=== PATIENT | female | born 1970 | race Caucasian/White ===

== ENCOUNTER 2017-08-09 13:03 | Emergency (ER) | payer SELFPAY ==
[~2017-08-09] VITALS: Ht 165.1 cm; Wt 99.8 kg
--- OUTSIDE RECORDS SUMMARY | 2017-08-09 13:11 | XMS REPORT ---
Author Author JULIAN HUGHES [facility] [place] eClinicalWorks Address Unknown Phone Unavailable Care Team Providers Care Psychologist Industrial Organizational Name Role Phone JULIAN HUGHES CP Unavailable Allergies No Known Allergies Problems Problem Type Condition Code Onset Dates Condition Status Problem Unspecified breast screening V76.10 Active Problem Acute pharyngitis 462 Active Problem Other psoriasis 696.1 Active Assessment Unspecified abdominal pain R10.9 Active Problem Pain in joint, lower leg 719.46 Active Problem STATE HEP A (ADULT) DX V05.3 Active Medications No Known Medications Procedures Procedure Coding System Code Date COMPLETE CBC W/AUTO DIFF WBC CPT-4 91698 Apr 12, 2015 ASSAY OF LIPASE CPT-4 39489 Apr 12, 2015 COMPREHEN METABOLIC PANEL CPT-4 62934 Apr 12, 2015 ASSAY THYROID STIM HORMONE CPT-4 62273 Apr 12, 2015 ASSAY OF AMYLASE CPT-4 82534 Apr 12, 2015 VENIPUNCT, ROUTINE* CPT-4 66460 Apr 12, 2015 ASSAY OF FREE THYROXINE CPT-4 28661 Apr 12, 2015 Results Name Result Date Reference Range Unit Abnormality Flag ROUTINE VENIPUNCTURE Summary Purpose eClinicalWorks Submission
--- OUTSIDE RECORDS SUMMARY | 2017-08-09 13:11 | XMS REPORT ---
Author Author ZHAO DOLAN [facility] Address [address] [place] [address] Care Team Providers Care Supervisor Belt And Link Assembly Name Role Phone ZHAO DOLAN Unavailable PROBLEMS Type Condition ICD9-CM Code [id number] Code Onset Dates Condition Status SNOMED Code Problem Mild persistent asthma without complication J45.30 Active 223626621 Problem Acute pharyngitis 462 Active 974142335 Problem STATE HEP A (ADULT) DX V05.3 Active 309198957 Problem Unspecified breast screening V76.10 Active 312300465 Problem Other psoriasis 696.1 Active 5935321 Problem Pain in joint, lower leg 719.46 Active 260696528 ALLERGIES Substance Reaction Event Type Date Status Penicillin V Potassium anaphylaxis Drug Allergy May, Active Erythromycin swelling Drug Allergy May, Active SOCIAL HISTORY No smoking Hx information available PLAN OF CARE Activity Details Follow Up prn Reason:worsening VITAL SIGNS Height 65.5 in 2016-05-29 Weight 208.4 lbs 2016-05-29 Temperature 98.0 degrees Fahrenheit 2016-05-29 Heart Rate 68 bpm 2016-05-29 Respiratory Rate 16 2016-05-29 BMI 34.15 kg/m2 2016-05-29 Blood pressure systolic 110 mmHg 2016-05-29 Blood pressure diastolic 60 mmHg 2016-05-29 MEDICATIONS No Known Medications RESULTS Name Result Date Reference Range INFLUENZA A & B (IN HOUSE) 2016-05-29 INFLUENZA A negative INFLUENZA B negative Control positive Lot # [id number] Exp date 12/13/17 STREP A (IN HOUSE) 2016-05-29 STREP A negative Control positive Lot # [id number] Exp date 01/03 PROCEDURES Procedure Date Ordered Related Diagnosis Body Site STREP A ASSAY W/OPTIC May 29, 2016 INFLUENZA ASSAY W/OPTIC May 29, 2016 Office Visit, Est Pt., Level 3 May 29, 2016 IMMUNIZATIONS No Known Immunizations
--- OUTSIDE RECORDS SUMMARY | 2017-08-09 13:11 | XMS REPORT ---
Author Author ZHAO DOLAN [facility] Address [address] [place] [address] Care Team Providers Care Clinching Machine Operator Name Role Phone DOLANZHAO MARQUEZ Unavailable PROBLEMS Type Condition ICD9-CM Code [id number] Code Onset Dates Condition Status SNOMED Code Problem Unspecified breast screening V76.10 Active 222664105 Problem Acute vasomotor rhinitis J30.0 Active 5770440 Problem Mild persistent asthma without complication J45.30 Active 831799067 Problem Pain in joint, lower leg 719.46 Active 199730154 Problem STATE HEP A (ADULT) DX V05.3 Active 530892612 Problem Acute pharyngitis 462 Active 265163614 Problem Other psoriasis 696.1 Active 1690037 ALLERGIES Substance Reaction Event Type Date Status Penicillin V Potassium anaphylaxis Drug Allergy Oct, Active Erythromycin swelling Drug Allergy Oct, Active ENCOUNTERS Encounter Location Date Diagnosis [place] [id number] [place] [id number] Jun, Influenza J11.1 [facility] [id number], [place] [address] Jun, [address] [place] [address] [id number] Apr, Body aches R52 ; Acute vasomotor rhinitis J30.0 ; Fever, unspecified fever cause R50.9 and Viral illness B34.[address] [place] [address] [id number] Mar, Sore throat J02.[address] [place] [address] [id number] Oct, Poison kiya L23.7 and Itching L29.[address] [place] [address] [id number] Oct, Poison kiya dermatitis L23.7 [place] [address] [id number] [place] [address] [id number] September, Poison kiya dermatitis L23.[address] [id number] May, Sore throat J02.9 and Viral syndrome B34.[address] [id number] May, Visit for TB skin test Z11.[address] [id number] Mar, Other viral warts B07.8 and Weight loss R63.[address] [id number] Aug, Paresthesia of skin R20.2 and Pain of left arm M79.[address] [id number] Jul, Mild persistent asthma without complication J45.30 and Viral syndrome B34.9 [place] [id number] [place] [address] [id number] Mar, Unspecified abdominal pain R10.[address] [id number] Mar, Unspecified abdominal pain R10.9 and Nausea R11.[address] [id number] Jan, Insect bite 919.4 [place] [id number] [place] [address] [id number] Oct, Cystocele 618.01 ; Painful intercourse 625.0 and Vaginal discharge 623.5 [facility] [address] [place] [id number] [place] [phone] Aug, [facility] [address] [id number] Aug, [place] [id number] [place] [address] [id number] September, [facility] [id number] [address] September, [facility] [id number] [id number] Jul, [facility] [address] [address] Jul, [facility] [id number] [place] [address] [id number] Jul, [facility] [address] [address] Aug, [facility] [id number] [place] [address] [id number] Jul, [facility] [id number] [place] [address] [id number] Jun, [facility] [id number] [place] [address] [phone] Jun, [facility] [id number] [place] [address] [id number] Jun, [facility] [id number] [place] [address] [id number] Jun, [facility] [id number] [place] [address] [id number] Jun, [facility] [id number] [phone] May, IMMUNIZATIONS Vaccine Route Administration Date Status BETAMETHASONE 6 MG/ML (PER 3 MG) IM Intramuscular October 21, 2016 Administered KENALOG 40 MG/ML (PER 10 MG) IM Intramuscular October 21, 2016 Administered SOCIAL HISTORY Never Assessed REASON FOR VISIT Poison kiya did not clear with solumedrol inj 10/04, still has extreme itching-- RADHA Toribio PLAN OF CARE Activity Details Follow Up prn Reason: VITAL SIGNS Height 65.5 in 2016-10-21 Weight 210.6 lbs 2016-10-21 Heart Rate 64 bpm 2016-10-21 Respiratory Rate 12 2016-10-21 BMI 34.51 kg/m2 2016-10-21 Blood pressure systolic 110 mmHg 2016-10-21 Blood pressure diastolic 80 mmHg 2016-10-21 MEDICATIONS Medication Instructions Dosage Frequency Start Date End Date Duration Status Flonase 50 MCG/DOSE Nasally Once a day 1 spray in each nostril 24h Active PredniSONE 10 MG Orally Once a day 4 tablet with food or milk x 4 d then 3 tab x 4 d then 2 tab x 4 d then 1 tab x 4 d 24h Oct, Active RESULTS No Results PROCEDURES Procedure Date Ordered Result Body Site KENALOG 40 MG/ML (PER 10 MG) October 21, 2016 BETAMETHASONE 6 MG/ML (PER 3 MG) October 21, 2016 THER/PROPH/DIAG INJ, SC/IM October 21, 2016 INSTRUCTIONS MEDICATIONS ADMINISTERED No Known Medications MEDICAL (GENERAL) HISTORY Type Description Date Medical History psoriasis Medical History Arthritis Medical History uterine prolapse Surgical History tubal ligation 01/2014 Surgical History appendectomy 10/2006 Hospitalization History child , surgeries
--- OUTSIDE RECORDS SUMMARY | 2017-08-09 13:11 | XMS REPORT ---
Author Author JULIAN HUGHES Organization eClinicalWorks Address Unknown Phone Unavailable Care Team Providers Care Journalism Intern Name Role Phone JULIAN HUGHES CP Unavailable Allergies, Adverse Reactions, Alerts Substance Reaction Event Type Penicillin V Potassium anaphylaxis Drug Allergy Erythromycin swelling Drug Allergy Problems Problem Type Condition Code Onset Dates Condition Status Problem Unspecified breast screening V76.10 Active Problem Acute pharyngitis 462 Active Problem Other psoriasis 696.1 Active Assessment Unspecified abdominal pain R10.9 Active Assessment Nausea R11.0 Active Problem Pain in joint, lower leg 719.46 Active Problem STATE HEP A (ADULT) DX V05.3 Active Medications No Known Medications Procedures Procedure Coding System Code Date Office Visit, Est Pt., Level 3 CPT-4 81609 Apr 11, 2015 Vital Signs Date/Time: Apr 11, 2015 Temperature 97.6 F Weight 229.2 lbs Height 65.5 in BMI 37.56 Index Blood Pressure Diastolic 70 mmHg Blood Pressure Systolic 122 mmHg Cardiac Monitoring Heart Rate 74 bpm Results Name Result Date Reference Range Unit Abnormality Flag Ultrasound : Gallbladder Summary Purpose eClinicalWorks Submission
--- OUTSIDE RECORDS SUMMARY | 2017-08-09 13:11 | XMS REPORT ---
Author Author ZHAO DOLAN [facility] Address [address] [place] [address] Care Team Providers Care Pulp Grinder Feeder Name Role Phone ZHAO DOLAN Unavailable PROBLEMS Type Condition ICD9-CM Code [id number] Code Onset Dates Condition Status SNOMED Code Problem Mild persistent asthma without complication J45.30 Active 547725530 Problem Acute pharyngitis 462 Active 511724018 Problem STATE HEP A (ADULT) DX V05.3 Active 898117142 Problem Unspecified breast screening V76.10 Active 352641355 Problem Other psoriasis 696.1 Active 4546593 Problem Pain in joint, lower leg 719.46 Active 721892963 ALLERGIES No Known Allergies SOCIAL HISTORY No smoking Hx information available PLAN OF CARE Activity Details Follow Up 48-72 hours Reason: VITAL SIGNS MEDICATIONS No Known Medications RESULTS No Results PROCEDURES Procedure Date Ordered Related Diagnosis Body Site TB INTRADERMAL 2016-05-22 N/A TB INTRADERMAL TEST May 22, 2016 IMMUNIZATIONS No Known Immunizations
--- OUTSIDE RECORDS SUMMARY | 2017-08-09 13:11 | XMS REPORT ---
Author Author ZHAO DOLAN Organization eClinicalWorks Address Unknown Phone Unavailable Care Team Providers Care Customer Service Receptionist Name Role Phone ZHAO DOLAN CP Unavailable Allergies, Adverse Reactions, Alerts Substance Reaction Event Type Penicillin V Potassium anaphylaxis Drug Allergy Erythromycin swelling Drug Allergy Problems Problem Type Condition Code Onset Dates Condition Status Assessment Pain of left arm M79.602 Active Problem Other psoriasis 696.1 Active Problem Unspecified breast screening V76.10 Active Problem Mild persistent asthma without complication J45.30 Active Problem STATE HEP A (ADULT) DX V05.3 Active Assessment Paresthesia of skin R20.2 Active Problem Acute pharyngitis 462 Active Problem Pain in joint, lower leg 719.46 Active Medications Medication Code System Code Instructions Start Date End Date Status Dosage Qvar [facility] [address]-16 80 MCG/ACT Inhalation Twice a day August 07, 2015 1 puff Albuterol Sulfate HFA [facility] [address]-10 108 (90 Base) MCG/ACT Inhalation every 4 hrs 2 puffs as needed Procedures Procedure Coding System Code Date Office Visit, Est Pt., Level 3 CPT-4 79396 September 11, 2015 Vital Signs Date/Time: September 11, 2015 Temperature 98.5 F Weight 227 lbs Height 65.5 in BMI 37.20 Index Blood Pressure Diastolic 80 mmHg Blood Pressure Systolic 130 mmHg Cardiac Monitoring Heart Rate 78 bpm Results No Known Results Summary Purpose eClinicalWorks Submission
--- OUTSIDE RECORDS SUMMARY | 2017-08-09 13:11 | XMS REPORT ---
Author Author ZHAO DOLAN [facility] Address [address] [place] [address] Care Team Providers Care Hop Trainer Name Role Phone ZHAO DOLAN Unavailable PROBLEMS Type Condition ICD9-CM Code [id number] Code Onset Dates Condition Status SNOMED Code Assessment Other viral warts B07.8 Mar, Active 19190148 Assessment Weight loss R63.4 Mar, Active 38796556 Problem Mild persistent asthma without complication J45.30 Active 596050845 Problem Other psoriasis 696.1 Active 8973158 Problem Pain in joint, lower leg 719.46 Active 567593777 Problem STATE HEP A (ADULT) DX V05.3 Active 016060999 Problem Unspecified breast screening V76.10 Active 092820583 Problem Acute pharyngitis 462 Active 934533914 ALLERGIES Substance Reaction Event Type Date Status Penicillin V Potassium anaphylaxis Drug Allergy Mar, Active Erythromycin swelling Drug Allergy Mar, Active SOCIAL HISTORY No smoking Hx information available PLAN OF CARE VITAL SIGNS Height 65.5 in 2016-04-17 Weight 203.0 lbs 2016-04-17 Heart Rate 70 bpm 2016-04-17 Respiratory Rate 18 2016-04-17 BMI 33.26 kg/m2 2016-04-17 Blood pressure systolic 118 mmHg 2016-04-17 Blood pressure diastolic 74 mmHg 2016-04-17 MEDICATIONS Medication Instructions Dosage Frequency Start Date End Date Duration Status Albuterol Sulfate HFA 108 (90 Base) MCG/ACT Inhalation every 4 hrs 2 puffs as needed 4h Active Qvar 80 MCG/ACT Inhalation Twice a day 1 puff 12h Jul, Active RESULTS No Results PROCEDURES Procedure Date Ordered Related Diagnosis Body Site ROUTINE VENIPUNCTURE 2016-04-17 N/A CRYOTHERAPY OF SKIN Apr 17, 2016 VENIPUNCT, ROUTINE* Apr 17, 2016 URINALYSIS, AUTO, W/O SCOPE Apr 17, 2016 COMPLETE CBC W/AUTO DIFF WBC Apr 17, 2016 Office Visit, Est Pt., Level 3 Apr 17, 2016 ASSAY THYROID STIM HORMONE Apr 17, 2016 COMPREHEN METABOLIC PANEL Apr 17, 2016 IMMUNIZATIONS No Known Immunizations
--- OUTSIDE RECORDS SUMMARY | 2017-08-09 13:11 | XMS REPORT ---
Author Author JULIAN HUGHES Organization [facility] Address [address] [place] [address] Care Team Providers Care Global Logistics Manager Name Role Phone EDVIN GAN JULIAN Unavailable PROBLEMS Type Condition ICD9-CM Code [id number] Code Onset Dates Condition Status SNOMED Code Problem Mild persistent asthma without complication J45.30 Active 278320681 Problem Acute pharyngitis 462 Active 402471382 Problem STATE HEP A (ADULT) DX V05.3 Active 034288546 Problem Unspecified breast screening V76.10 Active 727768439 Problem Other psoriasis 696.1 Active 3354685 Problem Pain in joint, lower leg 719.46 Active 021749030 ALLERGIES Substance Reaction Event Type Date Status Penicillin V Potassium anaphylaxis Drug Allergy September, Active Erythromycin swelling Drug Allergy September, Active SOCIAL HISTORY Never Assessed PLAN OF CARE Activity Details Follow Up prn Reason: VITAL SIGNS Height 65.5 in 2016-10-04 Weight 209.1 lbs 2016-10-04 Temperature 97.3 degrees Fahrenheit 2016-10-04 Heart Rate 72 bpm 2016-10-04 Respiratory Rate 16 2016-10-04 BMI 34.26 kg/m2 2016-10-04 Blood pressure systolic 118 mmHg 2016-10-04 Blood pressure diastolic 70 mmHg 2016-10-04 MEDICATIONS No Known Medications RESULTS No Results PROCEDURES Procedure Date Ordered Result Body Site SOLUMEDROL (UP TO 125 MG) October 04, 2016 THER/PROPH/DIAG INJ, SC/IM October 04, 2016 IMMUNIZATIONS Vaccine Route Administration Date Status SOLUMEDROL (UP TO 125 MG) IM Intramuscular October 04, 2016 Administered MEDICAL (GENERAL) HISTORY Type Description Date Medical History psoriasis Medical History Arthritis Medical History uterine prolapse Surgical History tubal ligation 01/2014 Surgical History appendectomy 10/2006 Hospitalization History child , surgeries
--- NOTE | 2017-08-09 13:42 | Diagnostic Imaging Report ---
PROCEDURE: CT head without contrast. TECHNIQUE: Multiple contiguous axial images were obtained through the brain without the use of intravenous contrast. INDICATION: Hypertension. Dizziness. Loss of vision in right eye. The ventricles are normal in size, shape and position. There is no acute parenchymal hemorrhage, edema or mass. There is no extra-axial mass or hemorrhage. IMPRESSION: Normal CT of the head. Dictated by: Dictated on workstation # [id number]
[2017-08-09 13:55] LABS: BASOPHILS % (AUTO) 0 % (0-10); EOSINOPHILS # (AUTO) 0.4 10^3/uL (0.0-0.3); EOSINOPHILS % (AUTO) 5 % (0-10); HEMATOCRIT 42 % (35-52); HEMOGLOBIN 14.1 G/DL (11.5-16.0); LYMPHOCYTES # (AUTO) 2.1 X 10^3 (1.0-4.0); LYMPHOCYTES % (AUTO) 28 % (12-44); MEAN CORPUSCULAR HEMOGLOBIN 32 PG (25-34); MEAN CORPUSCULAR HGB CONC 34 G/DL (32-36); MEAN CORPUSCULAR VOLUME 93 FL (80-99); MEAN PLATELET VOLUME 9.8 FL (7.4-10.4); MONOCYTES # (AUTO) 0.6 X 10^3 (0.0-1.0); MONOCYTES % (AUTO) 7 % (0-12); NEUTROPHILS # (AUTO) 4.6 X 10^3 (1.8-7.8); NEUTROPHILS % (AUTO) 60 % (42-75); PLATELET COUNT 398 10^3/uL (130-400); RED BLOOD COUNT 4.48 10^6/uL (4.35-5.85); RED CELL DISTRIBUTION WIDTH 12.6 % (10.0-14.5); WHITE BLOOD COUNT 7.7 10^3/uL (4.3-11.0)
[2017-08-09 14:18] LABS: INR 1.1 (0.8-1.4); PROTHROMBIN TIME PATIENT 13.9 SEC (12.2-14.7)
[2017-08-09 14:19] LABS: PARTIAL THROMBOPLASTIN TIME 28 SEC (24-35)
[2017-08-09 14:21] LABS: FIBRIN DEGRADATION PRODUCTS < 0.27 UG/ML (0.00-0.49)
[2017-08-09 14:26] LABS: ALANINE AMINOTRANSFERASE 17 U/L (0-55); ALBUMIN 4.1 GM/DL (3.2-4.5); ALKALINE PHOSPHATASE 106 U/L (40-136); BILIRUBIN,TOTAL 0.9 MG/DL (0.1-1.0); BUN/CREATININE RATIO 21; CALCIUM 9.1 MG/DL (8.5-10.1); CARBON DIOXIDE 27 MMOL/L (21-32); CHLORIDE 106 MMOL/L (98-107); CREATINE KINASE 40 U/L (29-168); CREATININE SERUM 0.73 MG/DL (0.60-1.30); GFR ESTIMATED > 60; GLUCOSE 92 MG/DL (70-105); POTASSIUM 4.4 MMOL/L (3.6-5.0); SODIUM 139 MMOL/L (135-145); TOTAL PROTEIN 6.8 GM/DL (6.4-8.2)
[2017-08-09 14:46] LABS: CREATINE KINASE MB 0.9 NG/ML (<6.6); MYOGLOBIN SERUM 27.2 NG/ML (10.0-92.0)
--- NOTE | 2017-08-09 14:49 | ED Neurological Problem ---
General Chief Complaint: Neurological Problems Stated Complaint: LOST VISION R EYE & PARTIAL IN L EYE ONSET 45MIN Nursing Triage Note: TO ROOM REPORTS SINCE 9A TODAY HAS HAD A DULL HEADACHE IN BACK OF HEAD. 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 REPORTS VISION GETTING BETTER ON ADMIT. Nursing Sepsis Screen: No Definite Risk Source: patient, spouse Exam Limitations: no limitations History of Present Illness Date Seen by Provider: Aug 09, 2017 Allergies and Home Medications Allergies Coded Allergies: Erythromycin Base (Verified Allergy, Unknown, 10/27/05) Penicillins (Verified Allergy, Unknown, 10/27/05) Povidone-Iodine (Verified Allergy, Unknown, 10/27/05) Soap (Verified Allergy, Unknown, 10/27/05) Home Medications No Active Prescriptions or Reported Meds Past Jknatnr-Bcqrtx-Dwwndb Hx Patient Social History Alcohol Use: Denies Use Recreational Drug Use: No Smoking Status: Never a Smoker Recent Foreign Travel: No Contact w/Someone Who Travel: No Recent Infectious Disease Expo: No Surgeries History of Surgeries: Yes Surgeries: Appendectomy, Tubal Ligation Respiratory History of Respiratory Disorde: No Cardiovascular History of Cardiac Disorders: No Neurological History of Neurological Disord: Yes Neurological Disorders: TIA Musculoskeletal History of Musculoskeletal Dis: No HEENT History of HEENT Disorders: No Cancer History of Cancer: No Psychosocial History of Psychiatric Problem: No Integumentary History of Skin or Integumenta: No Physical Exam Vital Signs Vital Signs - First Documented 08/09/17 13:12 Temp 97.8 Pulse 76 Resp 18 B/P (MAP) 153/97 (115) O2 Delivery Room Air Capillary Refill : Less Than 3 Seconds Progress/Results/Core Measures Results/Orders Lab Results Laboratory Tests Test 08/09/17 13:28 08/09/17 14:00 Range/Units White Blood Count 7.7 4.3-11.0 10^3/uL Red Blood Count 4.48 4.35-5.85 10^6/uL Hemoglobin 14.1 11.5-16.0 G/DL Hematocrit 42 35-52 % Mean Corpuscular Volume 93 80-99 FL Mean Corpuscular Hemoglobin 32 25-34 PG Mean Corpuscular Hemoglobin Concent 34 32-36 G/DL Red Cell Distribution Width 12.6 10.0-14.5 % Platelet Count 398 130-400 10^3/uL Mean Platelet Volume 9.8 7.4-10.4 FL Neutrophils (%) (Auto) 60 42-75 % Lymphocytes (%) (Auto) 28 12-44 % Monocytes (%) (Auto) 7 0-12 % Eosinophils (%) (Auto) 5 0-10 % Basophils (%) (Auto) 0 0-10 % Neutrophils # (Auto) 4.6 1.8-7.8 X 10^3 Lymphocytes # (Auto) 2.1 1.0-4.0 X 10^3 Monocytes # (Auto) 0.6 0.0-1.0 X 10^3 Eosinophils # (Auto) 0.4 H 0.0-0.3 10^3/uL Basophils # (Auto) 0.0 0.0-0.1 10^3/uL Prothrombin Time 13.9 12.2-14.7 SEC INR Comment 1.1 0.8-1.4 Activated Partial Thromboplast Time 28 24-35 SEC D-Dimer < 0.27 0.00-0.49 UG/ML Sodium Level 139 135-145 MMOL/L Potassium Level 4.4 3.6-5.0 MMOL/L Chloride Level 106 98-107 MMOL/L Carbon Dioxide Level 27 21-32 MMOL/L Anion Gap 6 5-14 MMOL/L Blood Urea Nitrogen 15 7-18 MG/DL Creatinine 0.73 0.60-1.30 MG/DL Estimat Glomerular Filtration Rate > 60 BUN/Creatinine Ratio 21 Glucose Level 92 70-105 MG/DL Calcium Level 9.1 8.5-10.1 MG/DL Total Bilirubin 0.9 0.1-1.0 MG/DL Aspartate Amino Transf (AST/SGOT) 18 5-34 U/L Alanine Aminotransferase (ALT/SGPT) 17 0-55 U/L Alkaline Phosphatase 106 40-136 U/L Total Creatine Kinase 40 29-168 U/L Creatine Kinase MB 0.9 <6.6 NG/ML Myoglobin 27.2 10.0-92.0 NG/ML Troponin I < 0.30 <0.30 NG/ML Total Protein 6.8 6.4-8.2 GM/DL Albumin 4.1 3.2-4.5 GM/DL TSH [place] Testing 1.10 0.35-4.94 UIU/ML XIAO ValverdeTCHEN L PA Ct Head Wo (08/09/17 13:23) Saline Lock/Iv-Start (08/09/17 13:46) Ekg Tracing (08/09/17 13:46) Monitor-Rhythm Ecg Trace Only (08/09/17 13:46) Cbc With Automated Diff (08/09/17 13:46) Comprehensive Metabolic Panel (08/09/17 13:46) Creatine Kinase (08/09/17 13:46) Creatine Kinase Mb (08/09/17 13:46) Fibrin Degradation Products (08/09/17 13:46) Protime With Inr (08/09/17 13:46) Partial Thromboplastin Time (08/09/17 13:46) Thyroid Analyzer (08/09/17 13:46) Troponin I (08/09/17 13:46) Myoglobin Serum (08/09/17 13:46) Mri Brain W/O Contrast (08/09/17 13:55) Vital Signs/I&O Vital Sign - Last 12Hours 08/09/17 13:12 Temp 97.8 Pulse 76 Resp 18 B/P (MAP) 153/97 (115) O2 Delivery Room Air Blood Pressure Mean: 115 Departure Impression Impression: Primary Impression: Transient cerebral ischemia Qualified Codes: G45.9 - Transient cerebral ischemic attack, unspecified Additional Impression: Stress Disposition: 01 HOME, SELF-CARE Condition: Improved Departure-Patient Inst. Decision time for Depature: 16:14 Referrals: MADY DALLAS MD FACP FAC Saul BARNETT MD, BASHAR J MD NO,LOCAL PHYSICIAN (PCP) Primary Care Physician Patient Instructions: Transient Ischemic Attack (DC) Add. Discharge Instructions: All discharge instructions reviewed with patient and/or family. Voiced understanding. Medications as instructed. Tylenol Extra Strength over-the- counter as directed for pain or headache. Take Aspirin 81 mg by mouth daily. Follow-up with your primary care provider on Friday for recheck and possible need for further testing. Follow-up with the payroll analyst of your choice for recheck and further evaluation. Call for appointment time Friday. Return to the emergency department for worsened symptoms, headache, dizziness, changes in vision, changes in behavior, slurred speech, chest pain, shortness of air, seizure, vomiting, numbness, weakness, facial drooping, slurred speech, or any other concerns. Scripts Simvastatin (Simvastatin) 10 Mg Tablet 10 MG PO DAILY, #30 TAB 0 Refills Prov: VALENTIN LORENZ 08/09/17 Work/School Note: Local Medical Staff Listing, Work Release Form Date Seen in the Emergency Department: Aug 09, 2017 Return to Work: Aug 11, 2017 VALENTIN LORENZ Aug 09, 2017 14:49
--- NOTE | 2017-08-09 14:59 | Diagnostic Imaging Report ---
PROCEDURE: MR imaging of the brain without contrast. TECHNIQUE: Multiplanar, multisequence MR imaging of the brain was performed without contrast. INDICATION: Loss of vision in the right eye and partial vision to the left eye. FINDINGS: The ventricles are normal in size, shape and position. There is no diffusion restriction with no acute parenchymal edema, hemorrhage or mass. There are several small focal areas of abnormal signal intensity in the periventricular white matter which is likely due to small vessel disease, but demyelinating disease cannot be excluded. There is no extra-axial mass or hemorrhage. There is no intraorbital abnormality. IMPRESSION: No acute abnormality is seen. Dictated by: Dictated on workstation # [id number]
[2017-08-09] MEDS ORDERED: SIMV10TA3 PO (16:17)
[2017-08-09 16:32] VITALS: BP 124/99
== END 2017-08-09 16:34 | disposition home or self-care (01) ==
LOC: EDUNIT# 13:03 → ER 13:06
DX: G45.9 Transient cerebral ischemic attack, unspecified (principal); Z90.49 Acquired absence of other specified parts of digestive tract; Z98.51 Tubal ligation status; Z86.73 Personal history of transient ischemic attack (TIA), and cerebral infarction without residual deficits; Z88.0 Allergy status to penicillin; Z88.1 Allergy status to other antibiotic agents; Z91.041 Radiographic dye allergy status
CPT/HCPCS: 36415; 70450; 70551; 80053; 82550; 82553; 83874; 84443; 84484; 85025; 85379; 85610; 85730; 93005; 93041